=== PATIENT | male | born 1980 | race Caucasian/White ===

== ENCOUNTER 2024-01-15 17:35 | Inpatient (IN) | payer BC ==
[~2024-01-15] VITALS: Ht 182.9 cm; Wt 95.3 kg
[~2024-01-15 17:35] MED LIST: VIIBRYD10 MG PO
[2024-01-15] MEDS: SODIUM CHLORIDE 0.9% 1000ML 1,000 ML IV ONE (18:16)
[2024-01-15 18:21] LABS: BASOPHILS % 0.3 % (0.0-1.0); EOSINOPHILS % 0.2 % (0.0-6.0); HEMATOCRIT 37.8 % (38.2-49.6); HEMOGLOBIN 12.3 g/dL (14.0-18.0); LYMPHOCYTES # (AUTO) 1.1 (1.0-3.2); LYMPHOCYTES % 8.8 % (18.0-39.1); MEAN CORPUSCULAR HEMOGLOBIN 28.8 pg (28-32); MEAN CORPUSCULAR HGB CONC 32.5 g/dL (31-35); MEAN CORPUSCULAR VOLUME 88.5 fL (81-99); MONOCYTES % 7.7 % (4.4-11.3); NEUTROPHILS # (AUTO) 10.1 (2.1-6.9); NEUTROPHILS % 82.7 % (38.7-80.0); PLATELET COUNT 167 x10e3/uL (140-360); RED BLOOD COUNT 4.27 x10e6/uL (4.3-5.7); RED CELL DISTRIBUTION WIDTH 13.1 % (11.7-14.4); WHITE BLOOD COUNT 12.26 x10e3/uL (4.8-10.8)
[2024-01-15 18:34] LABS: ALBUMIN 3.7 g/dL (3.5-5.0); ALBUMIN/GLOBULIN RATIO 1.1 (0.8-2.0); ANION GAP 15.3 mmol/L (8-16); BILIRUBIN,TOTAL 1.4 mg/dL (0.2-1.2); CREATININE, SERUM 1.87 mg/dL (0.72-1.25); POTASSIUM 4.3 mmol/L (3.5-5.1)
[2024-01-15 19:01] LABS: CLARITY,URINE HAZY (CLEAR); COLOR,URINE AMBER (YELLOW); LEUKOCYTE ESTERASE ,URINE SMALL (NEGATIVE); NITRITE,URINE NEGATIVE (NEGATIVE); PH,URINE 5.5 (5 - 7); PROTEIN,URINE DIPSTICK 2+ (NEGATIVE)
[2024-01-15 19:02] LABS: BILIRUBIN,URINE SMALL (NEGATIVE); GLUCOSE, URINE NEGATIVE (NEGATIVE); KETONES,URINE TRACE (NEGATIVE); URINE UROBILINOGEN 0.2 mg/dL (0.2 - 1)
[2024-01-15 19:10] LABS: BACTERIA,URINE MANY /HPF; EPITHELIAL CELLS,URINE RARE /LPF; RBC,URINE >50 /HPF (0-5); WBC,URINE (MAN) >50 /HPF (0-5)
[2024-01-15] MEDS: KETOROLAC TROMETHAMINE 30 MG/ML VIAL IV STA (19:23)
[2024-01-15] MEDS ORDERED: ONDANSETRON HCL INJ 2MG/ML 2ML 2 MG/ML VIAL IV PRN (21:15)
[2024-01-15 22:00] VITALS: BP 109/64; PULSE 80; RESP 18; TEMP 98.3; O2SAT 98
[2024-01-15 22:01] VITALS: PULSE 84; RESP 17; TEMP 98.4
[2024-01-15] MEDS: SODIUM CHLORIDE 0.9% 1000ML 1,000 ML IV SCH (22:04)
[2024-01-16] VITALS (9 sets, daily range): BP systolic 109–141; BP diastolic 69–89; PULSE 67–108; RESP 17–22; TEMP 97.7–102.5; O2SAT 95–98
[2024-01-16] MEDS: Morphine 4mg INJECTION 4 MG/ML INJ IV PRN (01:42)
[2024-01-16] MEDS: ACETAMINOPHEN 325 MG TAB PO PRN (04:31)
[2024-01-16 05:48] LABS: BASOPHILS % 0.3 % (0.0-1.0); EOSINOPHILS # (AUTO) 0.1 (0.0-0.4); EOSINOPHILS % 0.7 % (0.0-6.0); HEMATOCRIT 33.3 % (38.2-49.6); HEMOGLOBIN 10.8 g/dL (14.0-18.0); LYMPHOCYTES # (AUTO) 0.7 (1.0-3.2); LYMPHOCYTES % 9.8 % (18.0-39.1); MEAN CORPUSCULAR HEMOGLOBIN 28.8 pg (28-32); MEAN CORPUSCULAR HGB CONC 32.4 g/dL (31-35); MEAN CORPUSCULAR VOLUME 88.8 fL (81-99); MONOCYTES # (AUTO) 0.6 (0.2-0.8); MONOCYTES % 7.9 % (4.4-11.3); NEUTROPHILS # (AUTO) 5.6 (2.1-6.9); NEUTROPHILS % 80.9 % (38.7-80.0); PLATELET COUNT 121 x10e3/uL (140-360); RED BLOOD COUNT 3.75 x10e6/uL (4.3-5.7); RED CELL DISTRIBUTION WIDTH 12.9 % (11.7-14.4); WHITE BLOOD COUNT 6.92 x10e3/uL (4.8-10.8)
[2024-01-16 06:02] LABS: ALBUMIN 3.1 g/dL (3.5-5.0); ALBUMIN/GLOBULIN RATIO 1.1 (0.8-2.0); ANION GAP 12.4 mmol/L (8-16); CALCIUM 8.6 mg/dL (8.4-10.2); CREATININE, SERUM 1.58 mg/dL (0.72-1.25); POTASSIUM 4.4 mmol/L (3.5-5.1); TOTAL PROTEIN 5.9 g/dL (6.5-8.1)
[2024-01-16] MEDS: GUAIFENESIN/CODEINE 5 ML LIQD PO PRN (14:05)
[2024-01-16] MEDS: KETOROLAC TROMETHAMINE 30 MG/ML VIAL IV PRN (21:01)
[2024-01-17] VITALS (7 sets, daily range): BP systolic 116–172; BP diastolic 73–92; PULSE 74–90; RESP 17–18; TEMP 98–99.2; O2SAT 96–100
[2024-01-17] MEDS: FUROSEMIDE INJ 10 MG/ML 2 ML VIAL IV ONE (14:05)
[2024-01-18] VITALS: BP 120/83; PULSE 90; RESP 17; TEMP 100.2; O2SAT 94
[2024-01-18 04:00] VITALS: BP 121/89; PULSE 68; RESP 20; TEMP 98.1; O2SAT 95
[2024-01-18 06:06] LABS: BASOPHILS % 0.3 % (0.0-1.0); EOSINOPHILS # (AUTO) 0.2 (0.0-0.4); EOSINOPHILS % 3.1 % (0.0-6.0); HEMATOCRIT 32.5 % (38.2-49.6); HEMOGLOBIN 10.8 g/dL (14.0-18.0); LYMPHOCYTES # (AUTO) 1.4 (1.0-3.2); LYMPHOCYTES % 23.6 % (18.0-39.1); MEAN CORPUSCULAR HGB CONC 33.2 g/dL (31-35); MEAN CORPUSCULAR VOLUME 87.1 fL (81-99); MONOCYTES # (AUTO) 0.8 (0.2-0.8); MONOCYTES % 13.7 % (4.4-11.3); NEUTROPHILS # (AUTO) 3.5 (2.1-6.9); NEUTROPHILS % 59.1 % (38.7-80.0); PLATELET COUNT 153 x10e3/uL (140-360); RED BLOOD COUNT 3.73 x10e6/uL (4.3-5.7); RED CELL DISTRIBUTION WIDTH 12.7 % (11.7-14.4); WHITE BLOOD COUNT 5.84 x10e3/uL (4.8-10.8)
[2024-01-18 06:36] LABS: ANION GAP 12.9 mmol/L (8-16); CALCIUM 8.9 mg/dL (8.4-10.2); CREATININE, SERUM 1.57 mg/dL (0.72-1.25); POTASSIUM 3.9 mmol/L (3.5-5.1)
[2024-01-18 07:53] VITALS: BP 109/77; PULSE 72; RESP 18; TEMP 97.8; O2SAT 96
[2024-01-18 08:45] VITALS: BP 109/77; PULSE 72; RESP 18; TEMP 97.8; O2SAT 96
[2024-01-18] MEDS ORDERED: CEFUROXIME250 MG PO (10:52)
== END 2024-01-18 11:30 | disposition home or self-care (01) | DRG 690 ==
LOC: ER 17:45 → ERHOLD 21:11 → MED/SURG2 22:21
PROVIDERS: ADMIT Internal Medicine; ATTEND Internal Medicine
DX: N13.6 Pyonephrosis (principal); N17.9 Acute kidney failure, unspecified; D69.6 Thrombocytopenia, unspecified; K80.20 Calculus of gallbladder without cholecystitis without obstruction; R09.89 Other specified symptoms and signs involving the circulatory and respiratory systems; D64.9 Anemia, unspecified; I10 Essential (primary) hypertension; N23 Unspecified renal colic; I86.1 Scrotal varices; R31.29 Other microscopic hematuria; Z11.52 Encounter for screening for COVID-19
CPT/HCPCS: 36415; 71045; 74176; 80048; 80053; 81001; 85025; 87040; 87086; 94799; 99284; J1885; J1940; J2270; J2543; J7030; U0002

== ENCOUNTER → 2024-08-24 | Day surgery (SDC) | payer BC ==
[2024-08-22 16:12] LABS: BASOPHILS % 0.2 % (0.0-1.0); EOSINOPHILS # (AUTO) 0.1 (0.0-0.4); EOSINOPHILS % 1.6 % (0.0-6.0); HEMATOCRIT 44.6 % (38.2-49.6); HEMOGLOBIN 14.7 g/dL (14.0-18.0); LYMPHOCYTES # (AUTO) 1.4 (1.0-3.2); LYMPHOCYTES % 16.6 % (18.0-39.1); MEAN CORPUSCULAR HEMOGLOBIN 26.9 pg (28-32); MEAN CORPUSCULAR VOLUME 81.5 fL (81-99); MONOCYTES # (AUTO) 0.7 (0.2-0.8); MONOCYTES % 7.5 % (4.4-11.3); NEUTROPHILS # (AUTO) 6.4 (2.1-6.9); PLATELET COUNT 172 x10e3/uL (140-360); RED BLOOD COUNT 5.47 x10e6/uL (4.3-5.7); RED CELL DISTRIBUTION WIDTH 15.9 % (11.7-14.4); WHITE BLOOD COUNT 8.64 x10e3/uL (4.8-10.8)
[2024-08-22 16:40] LABS: ANION GAP 16.3 mmol/L (8-16); CALCIUM 9.2 mg/dL (8.4-10.2); CREATININE, SERUM 1.77 mg/dL (0.72-1.25); POTASSIUM 4.3 mmol/L (3.5-5.1)
[~2024-08-24] MED LIST changes: +ACETAMINOPHEN 1000 MG/100 ML 100 ML IV ONE; +CEFUROXIME250 MG PO; +DEXAMETHASONE SOD PHOS INJ 4 MG/ML SDV ONE; +EPHEDRINE SULFATE INJ 50 MG/ML VIAL ONE; +FAMOTIDINE 20 MG/2 ML VIAL IV ONE; +FENTANYL CITRATE/PF 100MCG/2 ML INJ ONE; +GLYCOPYRROLATE INJ 0.2 MG/ML VIAL ONE; +HYDROCODONE/APAP 7.5MG-325MG 1 EA TAB ONE; +LIDOCAINE HCL 2% LOCAL INJ 5 ML SDV VIAL INJ ONE; +MIDAZOLAM HCL 2 MG/2 ML VIAL ONE; +ONDANSETRON HCL INJ 2MG/ML 2ML 2 MG/ML VIAL ONE; +PROPOFOL IV EMULSION 10 MG/ML 20 ML VIAL ONE
[2024-08-24] MEDS: LACTATED RINGER'S 1,000 ML ONE (07:44)
[2024-08-24] MEDS: CEFTRIAXONE 1 GM VIAL ONE (07:44)
[2024-08-24 12:57] VITALS: TEMP 97.5
[2024-08-24] MEDS: HYDROCODONE/APAP 7.5MG-325MG 1 EA TAB PO ONE (14:07)
[2024-08-24 14:15] VITALS: BP 120/76; PULSE 68; RESP 16; O2SAT 99
== END | disposition home or self-care (01) ==
LOC: OR 06:33
PROVIDERS: ATTEND Urology
DX: N47.1 Phimosis (principal); K40.90 Unilateral inguinal hernia, without obstruction or gangrene, not specified as recurrent; N39.0 Urinary tract infection, site not specified; Z87.442 Personal history of urinary calculi; N40.0 Benign prostatic hyperplasia without lower urinary tract symptoms; N32.89 Other specified disorders of bladder; R80.9 Proteinuria, unspecified; G47.33 Obstructive sleep apnea (adult) (pediatric); F43.10 Post-traumatic stress disorder, unspecified; Z01.810 Encounter for preprocedural cardiovascular examination; Z01.812 Encounter for preprocedural laboratory examination; Z79.899 Other long term (current) drug therapy
CPT/HCPCS: 36415; 49505; 52005; 54163; 74420; 80048; 85025; 88304; 93005; C1758; C1781; J0131; J0696; J1100; J2003; J2250; J2405; J2704; J3010; J7121